=== PATIENT | female | born 1995 | race Caucasian/White ===

== ENCOUNTER 2021-07-06 06:07 | Inpatient (IN) | payer SELFPAY ==
[~2021-07-06] VITALS: Ht 157.5 cm; Wt 46.3 kg
[2021-07-06] MEDS ORDERED: ONDANSETRON HCL 4MG/2ML INJ IV STA (07:33)
[2021-07-06] MEDS ORDERED: SODIUM CHLORIDE 0.9% 1,000 ML IV ONE (07:45)
[2021-07-06 08:22] LABS: BASOPHILS % 0.6 % (0.0-2.0); EOSINOPHILS % 0.8 % (0.0-5.0); HEMATOCRIT. 36.8 % (36.0-48.0); HEMOGLOBIN. 12.2 g/dL (12.0-16.0); LYMPHOCYTES % 31.6 % (20.0-50.0); MEAN CORPUSCULAR HEMOGLOBIN 25.6 pg (28.0-32.0); MEAN CORPUSCULAR VOLUME 76.9 fL (81.0-99.0); MEAN PLATELET VOLUME 8.5 fl (7.4-10.4); MONOCYTES % 9.5 % (2.0-8.0); NEUTROPHILS % 57.5 % (40.0-76.0); PLATELET 80 x1000/uL (130-400); RED BLOOD CELL COUNT 4.79 mill/uL (4.2-5.4)
[2021-07-06 08:28] LABS: CHLORIDE 80 mEq/L (98-107)
[2021-07-06 08:32] LABS: CLARITY URINE CLEAR (CLEAR); COLOR URINE DARK YELLOW (YELLOW); KETONES URINE 4+ (NEGATIVE); LEUKOCYTE ESTERASE URINE 1+ (NEGATIVE); NITRITE URINE NEGATIVE (NEGATIVE); OCCULT BLOOD URINE NEGATIVE (NEGATIVE); PROTEIN URINE 1+ (NEGATIVE); SPECIFIC GRAVITY URINE 1.024 (1.005-1.030)
[2021-07-06 08:42] LABS: HCG SCREEN NEGATIVE
[2021-07-06] MEDS ORDERED: MAGNESIUM 2 G PREMIX 50 ML IV SCH (09:00)
[2021-07-06] MEDS ORDERED: POTASSIUM CHLORIDE 20MEQ TABLET SR PO SCH (09:00)
[2021-07-06] MEDS ORDERED: POTASSIUM CHLORIDE INJ 40 MEQ in DEXT 5% WATER 250 ML IV SCH (09:00)
[2021-07-06] MEDS ORDERED: IOHEXOL-300 100 ML BOTTLE ONE (09:52)
[2021-07-06] MEDS ORDERED: CEFTRIAXONE 1 G PREMIX 50 ML IV NR (10:30)
[2021-07-06] MEDS ORDERED: MORPHINE SULFATE 4 MG/ML CPJ (NOT FOR IM USE) IV SCH (11:00)
[2021-07-06] MEDS ORDERED: GUAIFENESIN 200MG/10ML SUGAR FREE UDC PO PRN (15:00)
[2021-07-06] MEDS ORDERED: DEXT 5%/0.9% NACL KCL 30MEQ/L 1,000 ML IV SCH (15:00)
[2021-07-06] MEDS ORDERED: ACETAMINOPHEN 325MG TABLET PO PRN (15:00)
[2021-07-06] MEDS ORDERED: ONDANSETRON HCL 4MG/2ML INJ IV PRN (15:00)
[2021-07-06] MEDS ORDERED: NITROGLYCERIN 0.4MG TABLET SL SL PRN (15:00)
[2021-07-06] MEDS ORDERED: MVI, ADULT NO.1 10 ML, FOLIC ACID 1 MG, THIAMINE HCL 100 MG in SODIUM CHLORIDE 0.9% 1,0... IV ONE (15:00)
[2021-07-06] MEDS ORDERED: DOCUSATE SODIUM 100MG CAPSULE PO PRN (15:00)
[2021-07-06] MEDS ORDERED: LORAZEPAM 2MG/ML CPJ IV PRN (15:00)
[2021-07-06] MEDS ORDERED: IPRATROPIUM/ALBUTEROL 0.5-3(2.5)MG/3ML NEB NEB PRN (15:00)
[2021-07-06] MEDS ORDERED: CLONIDINE 0.1MG TABLET PO PRN (15:00)
[2021-07-06] MEDS ORDERED: LEVOFLOXACIN 500MG PREMIX 100 ML IV SCH (15:00)
[2021-07-06] MEDS ORDERED: MAGNESIUM/ALUMINUM HYDROXIDE/SIMETHICONE 30ML UDC PO PRN (15:00)
[2021-07-06] MEDS: PANTOPRAZOLE SODIUM 40 MG/VIAL IV SCH (16:34)
[2021-07-06 16:35] LABS: FOLIC ACID (FOLATE) SERUM 10.9 ng/mL (>5.38)
[2021-07-06] MEDS: POTASSIUM CHLORIDE INJ 30 MEQ in DEXT 5%/0.9% NACL 1,000 ML IV SCH ×2 (16:35→22:16)
[2021-07-06 17:08] LABS: ETHANOL BLOOD < 10 mg/dL
[2021-07-06 17:11] LABS: TOTAL IRON BINDING CAPACITY 317 ug/dL (250-450)
[2021-07-06] MEDS: SUCRALFATE 1 G/10 ML UDC PO SCH ×2 (17:20→22:05)
[2021-07-06 20:30] VITALS: BP 90/50
[2021-07-06] MEDS ORDERED: ZOLPIDEM TARTRATE 5MG TABLET PO PRN (21:00)
[2021-07-06] MEDS ORDERED: NALOXONE HCL 0.4MG/ML VIAL IV PRN (22:30)
[2021-07-06] MEDS: MORPHINE SULFATE 2 MG/ML CPJ (NOT FOR IM USE) IV PRN (22:38)
[2021-07-06 23:58] LABS: CREATINE KINASE 337 IU/L (26-192); CREATINE KINASE MB FRACTION 1.9 ng/mL (0.5-3.6)
[2021-07-07] VITALS: BP 101/62
[2021-07-07] MEDS ORDERED: GABA-529 PO (02:25)
[2021-07-07] MEDS ORDERED: TRAZ-252 PO (02:25)
[2021-07-07] MEDS ORDERED: PRAZ2CAP2 PO (02:25)
[2021-07-07] MEDS ORDERED: METH36TA PO (02:25)
[2021-07-07] MEDS ORDERED: LAMO200T50 PO (02:25)
[2021-07-07] MEDS: ACETAMINOPHEN 325MG TABLET PO PRN ×4 (02:31→23:57)
[2021-07-07 04:00] VITALS: BP 99/49
[2021-07-07] MEDS: POTASSIUM CHLORIDE INJ 30 MEQ in DEXT 5%/0.9% NACL 1,000 ML IV SCH ×3 (05:08→17:56)
[2021-07-07] MEDS: MORPHINE SULFATE 2 MG/ML CPJ (NOT FOR IM USE) IV PRN (05:10)
[2021-07-07] MEDS: SUCRALFATE 1 G/10 ML UDC PO SCH ×4 (06:43→21:31)
[2021-07-07 07:31] LABS: CHLORIDE 99 mEq/L (98-107)
[2021-07-07 07:58] LABS: AMYLASE 126 IU/L (25-115)
[2021-07-07 08:00] VITALS: BP 103/40
[2021-07-07 08:00] LABS: BASOPHILS % 0.2 % (0.0-2.0); EOSINOPHILS % 2.4 % (0.0-5.0); HEMOGLOBIN. 10.7 g/dL (12.0-16.0); LYMPHOCYTES % 41.7 % (20.0-50.0); MEAN PLATELET VOLUME 8.4 fl (7.4-10.4); MONOCYTES % 9.4 % (2.0-8.0); NEUTROPHILS % 46.3 % (40.0-76.0); PLATELET 64 x1000/uL (130-400); RED BLOOD CELL COUNT 4.11 mill/uL (4.2-5.4)
[2021-07-07 08:02] LABS: CREATINE KINASE 316 IU/L (26-192); CREATINE KINASE MB FRACTION 1.5 ng/mL (0.5-3.6)
[2021-07-07 08:08] LABS: PHOSPHORUS 0.6 mg/dL (2.5-4.9)
[2021-07-07] MEDS ORDERED: POTASSIUM CHLORIDE 20MEQ TABLET SR PO SCH (09:30)
[2021-07-07 09:37] LABS: *AMPHETAMINES SCREEN URINE NEGATIVE (NEGATIVE)
[2021-07-07 09:40] LABS: *BARBITURATES SCREEN URINE NEGATIVE (NEGATIVE); *BENZODIAZEPINES SCREEN URINE NEGATIVE (NEGATIVE); *COCAINE SCREEN URINE NEGATIVE (NEGATIVE); METHADONE URINE SCREEN NEGATIVE (NEGATIVE)
[2021-07-07 09:41] LABS: PHENCYCLIDINE URINE SCREEN NEGATIVE (NEGATIVE)
[2021-07-07 09:43] LABS: CANNABINOID URINE SCREEN PRESUMTIVE POSITIVE (NEGATIVE); OPIATES URINE SCREEN PRESUMTIVE POSITIVE (NEGATIVE)
[2021-07-07] MEDS: PANTOPRAZOLE SODIUM 40 MG/VIAL IV SCH (09:47)
[2021-07-07] MEDS ORDERED: POTASSIUM PHOS,M-BASIC-D-BASIC 30 MMOL in SODIUM CHLORIDE 0.9% 500 ML IV SCH (11:00)
[2021-07-07] MEDS ORDERED: POTASSIUM CHLORIDE INJ 40 MEQ in DEXT 5% WATER 250 ML IV SCH (11:00)
[2021-07-07] MEDS: BACLOFEN 10MG TABLET PO PRN ×2 (11:58→21:31)
[2021-07-07 12:00] VITALS: BP 102/41
[2021-07-07 16:00] VITALS: BP 94/46
[2021-07-07] MEDS: KETOROLAC 30MG/ML VIAL IV PRN ×2 (16:05→22:17)
[2021-07-07] MEDS ORDERED: LEVOFLOXACIN 500MG PREMIX 100 ML IV SCH (17:00)
[2021-07-07 20:00] VITALS: BP 99/67
[2021-07-08] VITALS: BP 105/68
[2021-07-08] MEDS: POTASSIUM CHLORIDE INJ 30 MEQ in DEXT 5%/0.9% NACL 1,000 ML IV SCH ×2 (01:20→08:59)
[2021-07-08 04:00] VITALS: BP 107/73
[2021-07-08] MEDS: ACETAMINOPHEN 325MG TABLET PO PRN ×2 (04:11→08:58)
[2021-07-08] MEDS: KETOROLAC 30MG/ML VIAL IV PRN (05:36)
[2021-07-08] MEDS: BACLOFEN 10MG TABLET PO PRN (05:36)
[2021-07-08] MEDS: SUCRALFATE 1 G/10 ML UDC PO SCH ×2 (06:45→12:26)
[2021-07-08 06:49] LABS: CHLORIDE 105 mEq/L (98-107)
[2021-07-08 06:59] LABS: PHOSPHORUS 1.5 mg/dL (2.5-4.9)
[2021-07-08 07:01] LABS: BASOPHILS % 0.5 % (0.0-2.0); EOSINOPHILS % 1.4 % (0.0-5.0); HEMOGLOBIN. 10.7 g/dL (12.0-16.0); LYMPHOCYTES % 34.5 % (20.0-50.0); MEAN CORPUSCULAR HEMOGLOBIN 26.4 pg (28.0-32.0); MEAN CORPUSCULAR VOLUME 79.2 fL (81.0-99.0); MEAN PLATELET VOLUME 8.5 fl (7.4-10.4); MONOCYTES % 8.1 % (2.0-8.0); NEUTROPHILS % 55.5 % (40.0-76.0); PLATELET 78 x1000/uL (130-400); RED BLOOD CELL COUNT 4.04 mill/uL (4.2-5.4); RED CELL DISTRIBUTION WIDTH 21.2 % (11.6-14.6)
[2021-07-08 08:00] VITALS: BP 129/63
[2021-07-08] MEDS: PANTOPRAZOLE SODIUM 40 MG/VIAL IV SCH (08:53)
[2021-07-08 09:42] LABS: AMYLASE 137 IU/L (25-115)
[2021-07-08] MEDS ORDERED: MAGNESIUM 2 G PREMIX 50 ML IV NR (10:30)
[2021-07-08] MEDS ORDERED: POTASSIUM PHOS,M-BASIC-D-BASIC 20 MMOL in DEXT 5% WATER 243.3333 ML IV NR (10:30)
[2021-07-08 11:08] VITALS: BP 117/80
[2021-07-08 12:00] VITALS: BP 117/80
[2021-07-09] MEDS ORDERED: LEVOFLOXACIN 500MG TABLET PO SCH (11:00)
== END 2021-07-08 14:50 | disposition home or self-care (01) | DRG 282 ==
LOC: ER 06:07 → 6WST 11:42 → ENRESERV 19:34
PROVIDERS: ADMIT Internal Medicine; ATTEND Internal Medicine
DX: K85.90 Acute pancreatitis without necrosis or infection, unspecified (principal); K76.0 Fatty (change of) liver, not elsewhere classified; E87.1 Hypo-osmolality and hyponatremia; E87.6 Hypokalemia; N39.0 Urinary tract infection, site not specified; Z20.822 Contact with and (suspected) exposure to COVID-19; F17.200 Nicotine dependence, unspecified, uncomplicated; Z88.0 Allergy status to penicillin; Z88.8 Allergy status to other drugs, medicaments and biological substances
CPT/HCPCS: 36415; 74177; 80053; 80305; 80307; 80320; 81003; 82150; 82550; 82553; 82607; 82746; 83540; 83550; 83605; 83735; 84100; 84484; 84703; 85025; 87426; 93005; 93970; 99285; C9113; J0696; J1885; J1956; J2060; J2270; J2405; J3411; J3475; J3480; J3490; J7030; J7040; J7042; J7060; Q9967; G0480